=== PATIENT | male | born 1955 | race Caucasian/White ===

== ENCOUNTER 2019-01-11 14:04 | Observation (INO) ==
[2019-01-11 15:21] LABS: Basophils % 0.3 % (0.0-0.8); Eosinophils # 0.2 10*3/uL (0.0-0.87); Eosinophils % 1.4 % (0.00-10.9); Hematocrit 45.1 VOL% (42.0-52.0); Hemoglobin 15.1 GM/DL (14.0-18.0); Immature Granulocytes % 0.5 %; Immature Granulocytes Absolute 0.06 #; Lymphocytes # 4.3 10*3/uL (1.4-4.0); Lymphocytes % 33.8 % (21.2-54.2); Mean Corpuscular HGB Conc 33.5 GM/DL (32-36); Mean Corpuscular Volume 86.7 FL (87-102); Mean Platelet Volume 11.8 FL (9.6-12.0); Monocytes % 7.9 % (1.7-12.7); Neutrophils % 56.1 % (38.7-73.9); Platelet Count 199 T/CUMM (130-400); Red Cell Distribution Width 13.5 % (9.3-17.3); White Blood Count 12.7 T/CUMM (4-12)
[2019-01-11 15:42] LABS: Albumin 3.9 G/DL (3.4-5.0); Bilirubin,Total 0.4 MG/DL (0.2-1.0); Calcium 8.8 MG/DL (8.5-10.1); Osmolality,Calculated 283.3 MOS/KG (273-304); Total Protein 7.2 G/DL (6.4-8.3); Troponin I < 0.015 NG/ML (0.00-0.045)
[2019-01-11] MEDS ORDERED: ACETAMINOPHEN 325 MG TABLET PO PRN (16:36)
[2019-01-11] MEDS ORDERED: diphenhydrAMINE CAP 25 MG CAPSULE PO PRN (16:36)
[2019-01-11] MEDS ORDERED: ZALEPLON 5 MG CAPSULE PO PRN (16:36)
[2019-01-11] MEDS ORDERED: PROMETHAZINE 25 MG/1 ML VIAL IM PRN (16:36)
[2019-01-11] MEDS ORDERED: NICOTINE 21 MG/24 HR PATCH TRANSDERM PRN (16:36)
[2019-01-11] MEDS ORDERED: ONDANSETRON 4 MG/2 ML VIAL IV PRN (16:36)
[2019-01-11] MEDS ORDERED: LORazepam 1 MG TABLET PO PRN (16:46)
[2019-01-11] MEDS ORDERED: hydrALAZINE 20 MG/1 ML VIAL IV PRN (17:12)
[2019-01-11] MEDS: HEPARIN 5,000 UNIT/1 ML VIAL SUBCUT SCH (17:26)
[2019-01-11] MEDS: predniSONE 20 MG TABLET PO SCH (22:41)
[2019-01-11] MEDS: CARVEDILOL 6.25 MG TABLET PO SCH (22:41)
[2019-01-12] MEDS: HEPARIN 5,000 UNIT/1 ML VIAL SUBCUT SCH ×2 (02:13→08:46)
[2019-01-12 05:36] LABS: Basophils % 0.4 % (0.0-0.8); Eosinophils # 0.1 10*3/uL (0.0-0.87); Eosinophils % 1.1 % (0.00-10.9); Hematocrit 46.7 VOL% (42.0-52.0); Hemoglobin 15.3 GM/DL (14.0-18.0); Immature Granulocytes % 0.3 %; Immature Granulocytes Absolute 0.03 #; Lymphocytes # 1.7 10*3/uL (1.4-4.0); Lymphocytes % 18.3 % (21.2-54.2); Mean Corpuscular HGB Conc 32.8 GM/DL (32-36); Mean Corpuscular Volume 87.9 FL (87-102); Mean Platelet Volume 12.3 FL (9.6-12.0); Monocytes % 4.3 % (1.7-12.7); Neutrophils % 75.6 % (38.7-73.9); Platelet Count 197 T/CUMM (130-400); Red Blood Count 5.31 MC/CUMM (3.8-5.5); Red Cell Distribution Width 13.9 % (9.3-17.3); White Blood Count 9.1 T/CUMM (4-12)
[2019-01-12 06:02] LABS: Alanine Aminotransferase 38 U/L (16-61); Albumin 3.4 G/DL (3.4-5.0); Alkaline Phosphatase 83 U/L (45-117); Aspartate Amino Transferase 18 U/L (0-37); Bilirubin,Total < 0.39 MG/DL (0.2-1.0); Blood Urea Nitrogen 34 MG/DL (7-18); Calcium 8.7 MG/DL (8.5-10.1); Glucose 132 MG/DL (74-106); HDL Cholesterol 42 MG/DL (40-60); Osmolality,Calculated 286.5 MOS/KG (273-304); Risk Ratio 5.19; Thyroid Stimulating Hormone 0.781 uIU/ml (0.358-3.74); Total Protein 6.9 G/DL (6.4-8.3); Triglycerides 180 MG/DL (2-150)
[2019-01-12 08:21] LABS: Apearance,Urine Slightly Hazy (Clear); Bilirubin,Urine Negative (Negative); Blood, Urine Negative (Negative); Glucose,Urine (UA) Negative (Negative); Ketones,Urine 5 mg/dL (Negative); Mucus,Urine Many /LPF (Occasional); Nitrite,Urine Negative (Negative); Protein,Urine Negative; RBC,Urine 4 /HPF (0-4); Squamous Epithelial Cell,Urine Occasional /HPF (0-10); Urine Color Yellow (Yellow); Urine Specific Gravity 1.026 (1.001-1.035); Urine Urobilinogen < 2.0 EU/DL (0.2-1.0); WBC,Urine 3 /HPF (0-6)
[2019-01-12] MEDS: predniSONE 20 MG TABLET PO SCH (08:47)
[2019-01-12 08:49] LABS: Barbiturates Screen,Urine Negative (Negative); Benzodiazepines Screen,Urine Negative (Negative); Cannabinoid Screen,Urine Negative (Negative); Opiate Screen,Urine Negative (Negative); Phencyclidine Screen,Urine Negative (Negative)
[2019-01-12] MEDS: CARVEDILOL 6.25 MG TABLET PO SCH (08:52)
[2019-01-12] MEDS ORDERED: buPROPion SR 150 MG TABLET PO SCH (09:00)
[2019-01-12] MEDS ORDERED: OMEGA 3 ACID ETHYL ESTERS 1 GM CAPSULE PO SCH (09:00)
[2019-01-12] MEDS ORDERED: MELOXICAM 7.5 MG TABLET PO SCH (09:00)
[2019-01-12] MEDS ORDERED: hydroCHLOROthiazide 25 MG TABLET PO SCH (09:00)
[2019-01-12] MEDS ORDERED: PANTOPRAZOLE 40 MG TABLET PO SCH (09:00)
[2019-01-12] MEDS ORDERED: ATORVASTATIN 80 MG TABLET PO SCH (09:00)
[2019-01-12] MEDS ORDERED: ASPIRIN EC 81 MG TABLET PO SCH (09:00)
[2019-01-12] MEDS ORDERED: LORazepam 2 MG/1 ML VIAL IV ONE (10:00)
[2019-01-12 16:19] VITALS: BP 112/66
== END 2019-01-12 17:13 | disposition home or self-care (01) ==
LOC: N.TELEN 14:04 → N.ED 14:04 → SUATTDRO 16:36 → N.TELEN 20:58
PROVIDERS: ADMIT Internal Medicine; ATTEND Internal Medicine